=== PATIENT | female | born 1970 | race Caucasian/White ===

== ENCOUNTER 2021-02-22 13:56 | Emergency (ER) | payer SELFPAY ==
[~2021-02-22] VITALS: Ht 160 cm; Wt 71.2 kg
[2021-02-22 15:08] LABS: RED BLOOD COUNT 4.49 M/UL (4.00-5.10); WHITE BLOOD COUNT 3.3 K/UL (4.5-11.0)
[2021-02-22 15:26] LABS: BUN/CREATININE RATIO 13 (0-10)
== END 2021-02-22 18:22 | disposition home or self-care (01) ==
LOC: ER1 13:56
PROVIDERS: Family Medicine
DX: U07.1 COVID-19 (principal); Z23 Encounter for immunization; R91.1 Solitary pulmonary nodule
CPT/HCPCS: 80053; 85025; 85379; 99285; M0245; Q9967